=== PATIENT | male | born 1985 | race African-American/Black ===

== ENCOUNTER → 2020-09-03 | Outpatient (CLI) | payer BC ==
--- NOTE | 2020-09-03 17:09 | RAD ---
US DPLX VENOUS EXTREMITY LOWER LT History: Reason: LT MED CALF PAIN / Spl. Instructions: / History: Comparison: None. Discussion: Multiple longitudinal and transverse high resolution real-time images of the venous system of left lo wer extremity were obtained with color and Doppler sampling. The common femoral, superficial femoral, popliteal and proximal calf veins are all patent and demonstrate normal flow and compressibility. No rmal respiratory phasicity and augmentation is present. Impression: 1. No evidence of deep vein thrombosis. Electronically signed by: Sonido Miller DO (09/03/2020 5:07 PM) [id number]
--- NOTE | 2020-09-03 17:11 | RAD ---
Exam: Left tibia and fibula 2 views. Left ankle 3 views INDICATION: Left mid calf pain, entrapment injury TECHNIQUE: Frontal and lateral views of the left tibia and fibula and left ankle Comparisons: None FINDINGS: Tib-fib: Bone mineralization is normal. No acute or healed fractures. Soft tissue irregularity along the media l aspect of the calf. Joint spaces are well-maintained. Ankle: Bone mineralization is normal. No acute or healed fractures. Soft tissues are unremarkable. Joint spa katherin are well-maintained. IMPRESSION: 1. Soft tissue irregularity in the medial aspect of the left calf. 2. No acute osseous abnormality identified at the left ankle Electronically signed by: Whit Barboza MD (09/03/2020 5:09 PM) [id number]
== END ==
LOC: PMG 16:24
PROVIDERS: ATTEND Nurse Practitioner Family
DX: M79.662 Pain in left lower leg (principal); M79.672 Pain in left foot
CPT/HCPCS: 73590; 73600; 93971